=== PATIENT | male | born 1980 | race Caucasian/White ===

== ENCOUNTER 2022-10-16 22:49 | Emergency (ER) | payer BC ==
[~2022-10-16] VITALS: Ht 170.2 cm; Wt 83.9 kg
--- NOTE | 2022-10-16 22:49 | NUR ---
Pt BIBA [facility], run #[id number], coming from streets due to pt being homeless. Pt c/o right lower leg swelling, redness, and blisters that started a day and a half ago. Pt was recently treatec at [place] for left leg cellulitis. Pt able to ambulate but gait is unsteady due to right leg pain 07/01 non-radiaitng but continuous. HR slightly elevated at 107, all other vitals stable. pt is A&Ox4. No chest pain and no sob. Denies n/v. Has hx of epilepsy. NKA. Bed in lowest position. Connected to quality assurance monitor body.
[2022-10-16 22:52] VITALS: BP 131/85
--- NOTE | 2022-10-16 22:52 | NUR ---
BIBA TO BED #4
--- NOTE | 2022-10-16 23:10 | NUR ---
Dr. Fan at bedside
--- NOTE | 2022-10-16 23:26 | NUR ---
41 Y/O M presents with bilateral swelling of leg with chronic pain /. pt skin is reddened with blisters. pt stated he is homeless and a chronic user of heroin. Open head wound on R side of pts head, pt denies pain. pt is A&O x4 with dry skin appears to be mottled. PMH- epilepsy, pt denies having covid vaccine NKA
[2022-10-16 23:33] VITALS: BP 112/74
--- NOTE | 2022-10-17 00:25 | NUR ---
PT POKED BY MASS SPEC x4 WITH NO SUCCESS. PRIMARY NURSE ATTEMPT SEVERAL TIMES WELL. DR. ARGUELLES NOTIFIED.
--- NOTE | 2022-10-17 00:51 | NUR ---
UNSUCCESSFUL OBTAINING LABS. DR ARGUELLES TO ATTEMPT FEMORAL STICK. PT IS A CURRENT IV DRUG USER. IS HEP C POS
--- NOTE | 2022-10-17 00:57 | NUR ---
PT TO CT
--- NOTE | 2022-10-17 01:38 | NUR ---
COVID AND FLU SWABS COLLECTED AND SENT TO LAB
--- NOTE | 2022-10-17 02:06 | NUR ---
AT BEDSIDE DR. ARGUELLES ATTEMPTED TO OBTAIN BLOOD SPECIMEN. PT JUMPED UP OUT OF BED AND SWUNG ARMS STATED "DONT FUCKING TOUCH ME". DR. ARGUELLES EXPLAINED PLAN OF CARE AND NECESSITY FOR BLOOD. PT CONTINUED TO REFUSE BLOOD AND NOT AGREEABLE TO PLAN OF CARE. PT OFFERED A MEAL TO GO AND DECLINED.
[2022-10-17] MEDS ORDERED: CEPH500C16 PO (02:08)
--- NOTE | 2022-10-17 02:10 | NUR ---
PT REQUESTING HIS FOOD AND OTHER PERSONAL BELONGINGS TO BE REPLACED. PT INFORMED THAT ALL BELONGING WERE PLACED AT BEDSIDE UPON ARRIVAL SO THAT WHATEVER IS AT BEDSIDE IS ALL THAT WAS BROUGHT. PT PROVIDED WITH [facility] INFORMATION TO FOLLOW/UP. IV LINE REMOVED. PT DECLINED TO SIGN D/C INFORMATION. RX OF KEFLEX PROVIDED.
== END 2022-10-17 02:11 | disposition home or self-care (01) ==
LOC: MED 22:49
DX: S01.00XA Unspecified open wound of scalp, initial encounter (principal); Z20.822 Contact with and (suspected) exposure to COVID-19; R60.0 Localized edema; L03.115 Cellulitis of right lower limb; L03.116 Cellulitis of left lower limb; F11.90 Opioid use, unspecified, uncomplicated; Z79.899 Other long term (current) drug therapy; X58.XXXA Exposure to other specified factors, initial encounter; Y93.89 Activity, other specified; Y92.89 Other specified places as the place of occurrence of the external cause; Y99.8 Other external cause status
CPT/HCPCS: 70450; 73700; 99284

== ENCOUNTER 2022-11-05 19:30 | Emergency (ER) | payer BC ==
[~2022-11-05] VITALS: Ht 170.2 cm; Wt 77.1 kg
[~2022-11-05 19:30] MED LIST: CEPH500C16 PO
[2022-11-05 19:35] VITALS: BP 120/70
--- NOTE | 2022-11-05 19:36 | NUR ---
PT [facility] BLS. TAKEN TO BED 3
--- NOTE | 2022-11-05 19:37 | NUR ---
Dr. Gacria examining patient.
--- NOTE | 2022-11-05 19:37 | NUR ---
PT CAME IN WITH AMBULANCE. HE SAID THAT USED [facility] BEFORE HE CAME HERE. PT IS ALERT AND OREINETED X 4. DENIES PAIN. ROOM AIR
[2022-11-05] MEDS ORDERED: NACL 0.9% 1,000 ML IV ONE (19:45)
[2022-11-05 19:59] LABS: BASOPHILS # (AUTO) 0.1 K/uL (0.00-0.22); BASOPHILS % (AUTO) 0.8 % (0.0-2.0); EOSINOPHILS # (AUTO) 0.1 K/uL (0-0.4); EOSINOPHILS % (AUTO) 1.8 % (0.0-4.0); HEMOGLOBIN 11.3 g/dL (12.0-18.0); LYMPHOCYTES # (AUTO) 2.4 K/uL (2.0-11.5); LYMPHOCYTES % (AUTO) 35.2 % (20.5-51.1); MEAN CORPUSCULAR HEMOGLOBIN 29 pg (27-31); MEAN CORPUSCULAR HGB CONC 33 g/dL (33-37); MEAN CORPUSCULAR VOLUME 87.6 fL (80-94); MONOCYTES # (AUTO) 0.6 K/uL (0.8-1.0); MONOCYTES % (AUTO) 8.7 % (1.7-9.3); NEUTROPHILS # (AUTO) 3.7 K/uL (1.8-7.7); NEUTROPHILS % (AUTO) 53.5 % (42.2-75.2); PLATELET COUNT (AUTO) 414 K/uL (140-450); RED BLOOD CELL COUNT(AUTO) 3.89 MIL/uL (4.20-6.10); RED CELL DISTRIBUTION WIDTH 15.1 % (11.6-13.7); WHITE BLOOD COUNT (AUTO) 6.8 K/uL (4.8-10.8)
[2022-11-05 20:20] LABS: ANION GAP 8.7 (8-16); ASPARTATE AMINOTRANSFERASE 41 U/L (15-37); CARBON DIOXIDE 31.4 mmol/L (21-32); CHLORIDE 103 mmol/L (98-107); CREATININE 0.9 mg/dL (0.6-1.3); GFR ARICAN-AMERICAN 121 mL/min (>90); GLUCOSE 107 mg/dL (74-106); POTASSIUM 3.1 mmol/L (3.5-5.1); SODIUM SERUM 140 mmol/L (136-145); TOTAL BILIRUBIN 0.2 mg/dL (0.0-1.0); UREA NITROGEN, BLOOD 13 mg/dL (7-18)
[2022-11-05 20:21] LABS: ACETAMINOPHEN < 0.5 ug/ml (10-30); SALICYLATE < 2.8 mg/dL (2.8-20.0)
[2022-11-05] MEDS ORDERED: POTASSIUM CHLORIDE 10 MEQ TABER PO ONE (20:45)
[2022-11-05] MEDS ORDERED: NALO4SPR NS (21:43)
[2022-11-05] MEDS ORDERED: ONDA-188 PO (21:43)
[2022-11-05 22:01] LABS: BARBITURATE, URINE NEGATIVE ng/ml (NEG <=200); BENZODIAZEPINE, URINE NEGATIVE ng/mL (NEG <=200); CANNABINOID, URINE NEGATIVE ng/mL (NEG <=50); COCAINE, URINE NEGATIVE ng/mL (NEG <=300); OPIATE, URINE POSITIVE ng/mL (NEG <=2000); PHENCYCLIDINE SCREEN,URINE NEGATIVE ng/mL (NEG <=25)
--- NOTE | 2022-11-05 23:30 | NUR ---
I CALLED SECURITY TO HAVE THE PATIENT LEAVE SINCE PATIENT REFUSED IT
--- NOTE | 2022-11-05 23:45 | NUR ---
SECURITY WASNT ABLE TO ASK THE PATIENT O LEAVE
--- NOTE | 2022-11-05 23:55 | NUR ---
I CALLED THE PD R[facility] TO GET A PD ASSICTANCE. WAITING TO GET ONE SENT FROM THE [facility]
--- NOTE | 2022-11-06 00:25 | NUR ---
[place] PD AT BEDSIDE
--- NOTE | 2022-11-06 00:50 | NUR ---
PT TAKEN BY LATONIA DELGADO
--- NOTE | 2022-11-06 01:00 | NUR ---
PD [facility] PICKED UP THE PATIENT.
--- NOTE | 2022-11-07 12:30 | NUR ---
LATE ENTRY -- CONFIRMED WITH NURSE NS INFUSION COMPLETED AT 2205 11/05/22
== END 2022-11-06 00:50 ==
LOC: MED 19:30
DX: T40.411A Poisoning by fentanyl or fentanyl analogs, accidental (unintentional), initial encounter (principal); E87.6 Hypokalemia; F11.90 Opioid use, unspecified, uncomplicated; Z79.899 Other long term (current) drug therapy; Y92.811 Bus as the place of occurrence of the external cause
CPT/HCPCS: 36415; 70450; 80053; 80305; 85025; 93005; 96360; 99285; G0480; G0482; J7030